=== PATIENT | male | born 1955 | race African-American/Black ===

== ENCOUNTER 2016-12-31 10:22 | Emergency (ER) | payer SELFPAY ==
[~2016-12-31] VITALS: Ht 175.3 cm; Wt 72.7 kg
[2016-12-31] MEDS ORDERED: MAGNESIUM SULFATE 2 GM, MULTIVITAMINS 10 ML, THIAMINE 100 MG, FOLIC ACID 1 MG in SOD CH... IV STA (10:26)
[2016-12-31 10:33] VITALS: Ht 175.3 cm; Wt 72.7 kg
--- NOTE | 2016-12-31 11:06 | RADRPT ---
PROCEDURE: XR Chest. CLINICAL INDICATION: Chest pain, dyspnea TECHNIQUE: Single frontal view of the chest was obtained. COMPARISON: None FINDINGS: The heart is within normal limits. The thoracic aorta is calcified. There is a mild patchy right lower lobe infiltrate. The lungs are otherwise clear. There is no pleural effusion or pneumothorax. RPTAT: AA IMPRESSION: Mild patchy right lower lobe infiltrate. Calcified aorta consistent with atherosclerotic disease. .Jose Mcnair MD, MD Date Time Electronically viewed and signed by .Jose Mcnair MD, MD on 12/31/2016 11:06 .S/
[2016-12-31 11:07] LABS: BASOPHILS % 0.5 % (0.0-2.0); EOSINOPHILS # 0.3 10^3/ul (0.0-0.5); EOSINOPHILS % 3.1 % (0.0-7.0); HEMATOCRIT 43.8 % (42.0-52.0); HEMOGLOBIN 14.2 g/dl (14.0-18.0); LYMPHOCYTES # 3.3 10^3/ul (0.8-2.9); LYMPHOCYTES % 36.9 % (15.0-51.0); MEAN CORPUSCULAR HEMOGLOBIN 30.5 pg (29.0-33.0); MEAN CORPUSCULAR HGB CONC 32.4 g/dl (32.0-37.0); MEAN CORPUSCULAR VOLUME 94.4 fl (82.0-101.0); MEAN PLATELET VOLUME 7.8 fl (7.4-10.4); MONOCYTE # 0.6 10^3/ul (0.3-0.9); MONOCYTES % 6.4 % (0.0-11.0); NEUTROPHIL # 4.7 10^3/ul (1.6-7.5); NEUTROPHILS % 53.1 % (39.0-77.0); PLATELET COUNT 222 10^3/UL (140-440); RED BLOOD COUNT 4.64 10^6/ul (4.70-6.10); RED CELL DISTRIBUTION WIDTH 15.4 % (11.5-14.5); UNCORRECTED WBC 8.9 10^3/ul (4.8-10.8); WHITE BLOOD COUNT 8.9 10^3/ul (4.8-10.8)
[2016-12-31 11:16] LABS: ALBUMIN 3.8 g/dl (3.3-4.9); CHLORIDE 110 mmol/L (97-110)
[2016-12-31 11:17] LABS: POTASSIUM 3.8 mmol/L (3.5-5.1); SODIUM 153 mmol/L (135-144)
[2016-12-31 11:19] LABS: ALANINE AMINOTRANSFERASE 65 IU/L (13-69); ALBUMIN/GLOBULIN RATIO 1.22; ALKALINE PHOSPHATASE 86 IU/L (42-121); ANION GAP 23 (8-16); ASPARTATE AMINO TRANSFERASE 114 IU/L (15-46); BILIRUBIN,INDIRECT 0.1 mg/dl (0-1.1); BILIRUBIN,TOTAL 0.1 mg/dl (0.2-1.3); BLOOD UREA NITROGEN 11 mg/dl (7-20); CARBON DIOXIDE 24 mmol/L (21-31); CREATININE 0.63 mg/dl (0.61-1.24); GLUCOSE 194 mg/dl (70-220); TOTAL PROTEIN 6.9 g/dl (6.1-8.1)
[2016-12-31 11:20] LABS: CALCIUM 8.4 mg/dl (8.4-10.2)
[2016-12-31 11:21] LABS: CONDITION 1; LH ANALYZER COMMENTS 1
[2016-12-31 11:24] LABS: ACETAMINOPHEN < 10.0 ug/ml (10.0-30.0); SALICYLATE < 1.0 mg/dl (5.0-30.0)
--- NOTE | 2016-12-31 11:43 | RADRPT ---
PROCEDURE: CT Brain without contrast. CLINICAL INDICATION: Neurologic deficit TECHNIQUE: A CT of the brain was performed on multidetector high-resolution CT scanner utilizing a xial sections from the skull base through the vertex without contrast. One or more of the following dose reduction techniques were used: Automated exposure control, Adjustment of the mA and/or kV acc ording to patient size, and/or use of iterative reconstruction technique. DOSE: CTDI = 45/45 mGy and the DLP = 630 mGy-cm. COMPARISON: None available FINDINGS: No acute intracranial hemorrhage, significant mass effect or midline shift. The gupta-white different iation is grossly preserved. Prominence of the cortical sulci and ventricles are related to mild cerebral volume loss. Atheroscl erotic calcifications of the cavernous segments of the internal carotid arteries are seen. Paranasal sinus mucosal thickening. IMPRESSION: No acute intracranial hemorrhage or significant mass effect. Mild volume loss. Intracranial atherosclerosis. RPTAT: AA .Federico Jaramillo MD, Date Time Electronically viewed and signed by .Federico Jaramillo MD, on 12/31/2016 11:43 .T/
[2016-12-31] MEDS ORDERED: PIPER-TAZO 3.375 GM IV (PMX) 100 ML IVPB STA (12:13)
[2016-12-31] MEDS ORDERED: ALBUTEROL 0.5% (NEB) 2.5 MG/0.5 ML AMP NEB STA (12:13)
[2016-12-31] MEDS ORDERED: IPRATROPIUM (NEB) 0.5 MG/2.5 ML AMP NEB STA (12:13)
[2016-12-31] MEDS ORDERED: SODIUM CHLORIDE 0.9% 1L BAG IV* STA (12:13)
[2016-12-31] MEDS ORDERED: VANCOMYCIN 1 GM (PMX) 250 ML IVPB STA (12:13)
--- NOTE | 2016-12-31 12:25 | ERA ---
ER Documentation Chief Complaint Date/Time DATE: 12/31/16 TIME: 12:17 Chief Complaint [id number] FROM [facility] [place] [address] ALTERED POSSIBLE ETOH, HPI This is a 61-year-old -[place] male who was found sleeping in the [facility] parking lot and brought in by rescue unit 39 after a bystander had phoned 911. The patient was difficult to arouse but was maintaining his airway. The patient smelled of alcohol but there is no signs of trauma or drug paraphernalia according to EMS. Some witnesses at the scene indicated that the patient is homeless and often will be seen around that area intoxicated. The patient is unable to provide any other history. ROS All systems reviewed and are negative except as per history of present illness. Medications Home Meds Unable to Obtain Active Prescriptions or Reported Meds Allergies Allergies: Coded Allergies: Unknown: Unable to obtain (Unverified , 12/31/16) PMhx/Soc Medical and Surgical Hx: Unable to obtain Hx Tobacco Use: Yes Smoking Status: Current every day smoker Physical Exam Vitals Vital Signs Date Time Temp Pulse Resp B/P Pulse Ox O2 Delivery O2 Flow Rate FiO2 12/31/16 10:33 98.5 128 20 190/86 96 Physical Exam Constitutional:Well-developed. Debilitated male in mild respiratory distress. HEENT:Normocephalic. Atraumatic.Pupils were equal round reactive to light. Moist mucous membranes.No tonsillar exudates. No nasoseptal hematoma. No hemotympanum. Neck: No nuchal rigidity. No lymphadenopathy. No posterior cervical spine tenderness or step-offs. Respiratory: No wheezing. No grunting. Not using accessory muscles of respiration. No tachypnea. Decreased breath sounds heard in the right lower lung with very slight wheezing on auscultation. Cardiovascular: Tachycardic with regular rhythm.No murmurs. No rubs were appreciated.S1, S2 normal. Distal pulses are palpable 2+ bilaterally. GI: Abdomen was soft. Nontender. Non Distended. No pulsatile abdominal masses or bruits. No rebound. No guarding. Bowel sounds were present and normal. No flank ecchymosis. No periumbilical ecchymosis. Muscle skeletal: Full range of motion of both the upper and lower extremities bilaterally.Normal muscle tone.No assymetrical calf tenderness or swelling. Skin: No petechia, no purpura. No lesions on the palms or the soles of the feet. No maculopapular rash. NEURO: Patient would open eyes to pain. Mumbling incomprehensible sounds. Patient withdrew to pain. Gait not observed as patient was too altered to ambulate. Patient smelled of alcohol. Result Diagram: 12/31/16 1045 12/31/16 1045 Results 24 hrs Laboratory Tests Test 12/31/16 10:45 Acetaminophen Level < 10.0ug/ml Alanine Aminotransferase (ALT/SGPT) 65IU/L Albumin 3.8g/dl Albumin/Globulin Ratio 1.22 Alkaline Phosphatase 86IU/L Anion Gap 23 Aspartate Amino Transf (AST/SGOT) 114IU/L Basophils # 0.010^3/ul Basophils % 0.5% Blood Morphology Comment Blood Urea Nitrogen 11mg/dl Calcium Level 8.4mg/dl Carbon Dioxide Level 24mmol/L Chloride Level 110mmol/L Creatinine 0.63mg/dl Direct Bilirubin 0.00mg/dl Eosinophils # 0.310^3/ul Eosinophils % 3.1% Ethyl Alcohol Level 467.0mg/dl Globulin 3.10g/dl Glucose Level 194mg/dl Hematocrit 43.8% Hemoglobin 14.2g/dl Indirect Bilirubin 0.1mg/dl Lymphocytes # 3.310^3/ul Lymphocytes % 36.9% Mean Corpuscular Hemoglobin 30.5pg Mean Corpuscular Hemoglobin Concent 32.4g/dl Mean Corpuscular Volume 94.4fl Mean Platelet Volume 7.8fl Monocytes # 0.610^3/ul Monocytes % 6.4% Neutrophils # 4.710^3/ul Neutrophils % 53.1% Nucleated Red Blood Cells # 0.010^3/ul Nucleated Red Blood Cells % 0.0/100WBC Platelet Count 87417^3/UL Potassium Level 3.8mmol/L Red Blood Count 4.6410^6/ul Red Cell Distribution Width 15.4% Salicylates Level < 1.0mg/dl Sodium Level 153mmol/L Total Bilirubin 0.1mg/dl Total Protein 6.9g/dl White Blood Count 8.910^3/ul Current Medications Medications (Trade) Dose Ordered Sig/Rohan Route PRN Reason Start Time Stop Time Status Last Admin Dose Admin Magnesium Sulfate/ Multivitamins/ Thiamine HCl/ Folic Acid/Sodium Chloride (Magnesium Sulfate/Mvi Adult/ Vitamin B1/Folic Acid/NS) 1,015.2 ml @ 500 mls/ hr Q2H2M STAT IV 12/31/16 10:26 12/31/16 12:27 DC Sodium Chloride 2250 ml 2,250 ml BOLUS OVER 2 HOURS STAT IV* 12/31/16 12:13 12/31/16 12:14 UNV Vancomycin HCl 250 ml @ 125 mls/hr ONCE STAT IVPB 12/31/16 12:13 12/31/16 14:12 UNV Piperacillin Sod/ Tazobactam Sod (Zosyn 3.375gm/ 100 ml (Pmx)) 100 ml @ 200 mls/hr ONCE STAT IVPB 12/31/16 12:13 12/31/16 12:42 UNV Albuterol (Proventil 0.5% (Neb)) 5 mg ONCE STAT NEB 12/31/16 12:13 12/31/16 12:14 UNV Ipratropium [place] (Atrovent 0.02% (Neb)) 0.5 mg ONCE STAT NEB 12/31/16 12:13 12/31/16 12:14 UNV Ondansetron HCl (Zofran Inj) 4 mg ER BRIDGE PRN IV NAUSEA AND/OR VOMITING 12/31/16 13:00 01/01/17 12:59 Acetaminophen (Tylenol Tab) 650 mg ER BRIDGE PRN PO MILD PAIN/FEVER 12/31/16 13:00 01/01/17 12:59 Procedures/MDM The patient presented to the emergency department with an acute and persistent change in their mental status. The differential diagnosis is diverse however reversible causes such as hypoglycemia, opiate overdose, thiamine deficiency were immediately considered. The patient was placed on a circuit board inspector, continuous pulse oximetry and IV access was established. The patients airway was secure however hypoxic events such as anemia, shock, or severe pulmonary disease were all considered as etiologies in this patients presentation. Circulation assessed with good cap refill and did not require fluids or pressure support. Finger stick for rapid glucose determined to be normal. Given the changes in the patient's mental status I did obtain a CT scan of the head which showed no acute intracerebral hemorrhage mass-effect or midline shift. When the patient arrived he was tachycardic and hypoxic satting at 89-93 %. He was placed on low-flow supplemental oxygen 2 L and his pulse ox improved to 95%. Given the severity of his symptoms and his altered mental status thought to be due to alcohol induced toxic encephalopathy, I did obtain a chest radiograph as it was concerned with aspiration pneumonia. The patient had a right lower lobe patchy infiltrate. Given that the patient has risk factors for tuberculosis I did place the patient in isolation precaution and obtained an AFB sputum. Blood cultures and urine cultures were obtained. The patient was started on broad-spectrum antibiotics for possible aspiration pneumonia and given IV vancomycin and IV Zosyn. 12 Lead EKG tracing ordered and reviewed by myself showed: Normal sinus rhythm of [] bpm and no arrhythmia. CA interval normal. QRS duration normal. No ST segment elevation No ST segment depression. No changes consistent with acute ischemia. The patient's serum ethanol was elevated. The patient received a banana bag in the emergency department and given that the patient is going to be admitted in serious condition with an anticipated stay of greater than 2 midnights he will continue to be monitored for alcohol withdrawal however at this time the patient still remained clinically intoxicated but had significant improvement of his altered mental status as he was now alert awake orientated 3 . He will be admitted in serious condition to the hospitalist to the telemetry service Departure Diagnosis: Primary Impression: Toxic encephalopathy Additional Impressions: Alcohol intoxication Aspiration pneumonia Condition: Serious HEIKE MONCADA Dec 31, 2016 12:25
[2016-12-31] MEDS ORDERED: ACETAMINOPHEN 325 MG TAB PO PRN ×2 (13:00→16:00)
[2016-12-31] MEDS ORDERED: ONDANSETRON 4 MG INJ IV PRN ×2 (13:00→16:00)
[2016-12-31] MEDS ORDERED: LORAZEPAM 2 MG INJ IV PRN (16:00)
[2016-12-31] MEDS ORDERED: NACL 0.9% 3 ML SYG IV SCH (16:00)
[2016-12-31 17:09] LABS: TROPONIN-I 0.03 ng/ml (0.00-0.12)
[2016-12-31 17:11] LABS: CK-MB 2.2 ng/ml (0.0-2.4)
[2016-12-31] MEDS ORDERED: FAMOTIDINE 20 MG INJ IV SCH (21:00)
[2016-12-31] MEDS ORDERED: PIPER-TAZO 3.375 GM IV (PMX) 100 ML IVPB SCH (22:00)
[2017-01-01] MEDS ORDERED: MULTIVITAMINS 10 ML, THIAMINE 100 MG, FOLIC ACID 1 MG in SOD CHLORIDE 0.9% 1,000 ML IVPB SCH (09:00)
[2017-01-01] MEDS ORDERED: CHLORDIAZEPOXIDE 25 MG CAP PO SCH (21:00)
== END 2016-12-31 16:00 | disposition left against medical advice (07) ==
LOC: E/R 10:22
DX: T51.92XA Toxic effect of unspecified alcohol, intentional self-harm, initial encounter (principal); R40.2242 Coma scale, best verbal response, confused conversation, at arrival to emergency department; G92 Toxic encephalopathy; J69.0 Pneumonitis due to inhalation of food and vomit; F17.210 Nicotine dependence, cigarettes, uncomplicated; R07.9 Chest pain, unspecified; R40.2362 Coma scale, best motor response, obeys commands, at arrival to emergency department; R40.2142 Coma scale, eyes open, spontaneous, at arrival to emergency department
CPT/HCPCS: 36415; 70450; 71010; 80053; 80306; 82550; 82553; 83605; 84484; 85025; 87400; 93005; 94664; 96374; 96375; 99285; J3411; J3475; J7030